=== PATIENT | female | born 1930 | race Hispanic/Latino ===

== ENCOUNTER 2018-04-01 10:01 | Emergency (ER) | payer OTHER ==
[2018-04-01] MEDS ORDERED: HYDROCODONE/APAP 5/325 MG TAB ONE (12:49)
--- NOTE | 2018-04-01 13:00 | RAD REPORT ---
EXAM DESCRIPTION: RAD - Foot Left 3 View - 04/01/2018 12:54 pm CLINICAL HISTORY: Pain;Smash injury COMPARISON: No comparisons FINDINGS: Cortical irregularity is seen at the base of the distal phalanx dorsal aspect left great t oe, compatible with a fracture. Mildly adjacent soft tissue swelling is present. Prominent calcaneal spurs are present.
[2018-04-01] MEDS ORDERED: CEPHALEXIN 250 MG CAP ONE (13:23)
--- NOTE | 2018-04-01 13:28 | ER ---
Nurse's Notes [facility] Name: Mirela Carranza Age: 87 yrs Sex: Female : 1930 Arrival Date: 04/01/2018 Time: 10:02 Bed 17 Private MD: Diagnosis: Contusion of left great toe with damage to nail;Nondisplaced fracture of distal phalanx of left great toe Presentation: 04/01 10:33 Presenting complaint: Patient states: Dropped something on toe on Sat and now has ph swelling and drainage from area, hx of NIDDM, denies fever, also denies N/V/D, L great toe noted to be swollen w/ discoloration to top of toe near toenail, bruise also noted to top of foot. Transition of care: patient was not received from another setting of care. Onset of symptoms was April 01, 2018. Risk Assessment: Do you want to hurt yourself or someone else? Patient reports no desire to harm self or others. Care prior to arrival: None. 10:33 Method Of Arrival: Wheelchair ph 10:33 Acuity: NESTOR 3 ph 11:50 Initial Sepsis Screen: Does the patient meet any 2 criteria? No. Patient's initial em sepsis screen is negative. Does the patient have a suspected source of infection? Yes: Skin breakdown/wound. Historical: - Allergies: 10:36 Morphine; ph - PMHx: 10:36 Diabetes - NIDDM; Hyperlipidemia; Hypertension; nerve pain; ph - PSHx: 10:36 back sx; Cholecystectomy; ph - Immunization history:: Adult Immunizations not up to date. - Social history:: Smoking status: Patient/guardian denies using tobacco. - Ebola Screening: : Patient negative for fever greater than or equal to 101.5 degrees Fahrenheit, and additional compatible Ebola Virus Disease symptoms Patient denies exposure to infectious person Patient denies travel to an Ebola-affected area in the 21 days before illness onset No symptoms or risks identified at this time. Screenin:36 Abuse screen: Denies threats or abuse. Nutritional screening: No deficits noted. em Tuberculosis screening: No symptoms or risk factors identified. Fall Risk None identified. Assessment: 11:40 General: Appears in no apparent distress. comfortable, Behavior is calm, cooperative, em Denies fever, reports a piece of wood fell on foot on Thursday. Pain: Complains of pain in left first toe Pain currently is 8 out of 10 on a pain scale. Neuro: Level of Consciousness is awake, alert, obeys commands, Oriented to person, place, time, situation. Cardiovascular: Capillary refill < 3 seconds Patient's skin is warm and dry. Respiratory: Airway is patent Respiratory effort is even, unlabored, Respiratory pattern is regular, symmetrical. GI: Abdomen is flat. Derm: Bruising that is dark purple, on left first toe. Musculoskeletal: Circulation, motion, and sensation intact. Range of motion: intact in all extremities, Swelling absent. 11:55 Reassessment: I agree with previous assessment. hb 12:40 Reassessment: Patient appears in no apparent distress at this time. Patient and/or em family updated on plan of care and expected duration. Pain level reassessed. Patient is alert, oriented x 3, equal unlabored respirations, skin warm/dry/pink. pending x-ray results, given a warm blanket. 13:45 Reassessment: Patient appears in no apparent distress at this time. Patient and/or em family updated on plan of care and expected duration. Pain level reassessed. Patient is alert, oriented x 3, equal unlabored respirations, skin warm/dry/pink. Vital Signs: 10:36 BP 114 / 48; Pulse 72; Resp 18; Temp 97.1; Pulse Ox 97% on R/A; Weight 67.13 kg; Height ph 5 ft. 1 in. (154.94 cm); 11:45 BP 116 / 58; Pulse 59; Resp 16; Pulse Ox 99% on R/A; em 13:00 BP 108 / 64; Pulse 64; Resp 18; Pulse Ox 99% on R/A; Pain 8/10; em 10:36 Body Mass Index 27.96 (67.13 kg, 154.94 cm) ph ED Course: 10:02 Patient arrived in ED. mr 10:34 Triage completed. ph 10:37 Arm band placed on. ph 11:35 Bucky Kaplan LVN is Primary Nurse. em 11:35 Patient has correct armband on for positive identification. Bed in low position. Call em light in reach. 11:36 [facility] Howard [facility]C [facility] snw 11:36 Vu Reyes MD is Attending Physician. snw 12:54 Foot Left 3 View XRAY In Process Unspecified. EDMS 13:20 Ortho shoe applied to left foot. em 13:26 Fei Gabriel MD is Referral Physician. snw 13:51 No provider procedures requiring assistance completed. Patient did not have IV access em during this emergency room visit. Administered Medications: 12:42 Drug: [place] 5 mg-325 mg 1 tabs Route: PO; em 13:20 Follow up: Response: No adverse reaction; Pain is decreased em 13:20 Drug: KeFLEX 500 mg Route: PO; em 13:57 Follow up: Response: No adverse reaction em Outcome: 13:26 Discharge ordered by MD. snw 13:55 Discharged to home ambulatory, with family. em 13:55 Condition: good 13:55 Discharge instructions given to patient, family, Instructed on discharge instructions, follow up and referral plans. medication usage, Demonstrated understanding of instructions, follow-up care, medications, Prescriptions given X 1. 13:57 Patient left the ED. em Signatures: Dispatcher [employer] EDFL Mehreen Howard, MECHANICAL DRAFTER-C MECHANICAL DRAFTER-Csnw Francisco Cami Kaplan, Bucky, NETWORKS COMPUTER CONSULTANT NETWORKS COMPUTER CONSULTANT em Stephany Hayes, DEIDRA RN Kennedi Estrella, RN RN Corrections: (The following items were deleted from the chart) 11:53 11:40 General: Appears in no apparent distress. comfortable, Behavior is calm, em cooperative, Denies fever, em 11:53 11:40 General: Appears in no apparent distress. comfortable, Behavior is calm, em cooperative, Denies fever, reports a piece of wood fell on foot 2 days ago. em
--- NOTE | 2018-04-01 13:28 | EDPHYS ---
Physician Documentation [facility] Name: Mirela Carranza Age: 87 yrs Sex: Female : 1930 Arrival Date: 04/01/2018 Time: 10:02 Bed 17 Private MD: ED Physician Vu Reyes HPI: 04/01 12:07 This 87 yrs old Female presents to ER via Wheelchair with complaints of Foot snw Injury. 12:07 The patient presents with a contusion, pain, that is acute, swelling, tenderness. The snw complaints affect the dorsum of left foot. Context: The problem was sustained at a store, resulted from a crush injury, from a heavy object, the patient can fully bear weight, the patient is able to ambulate. Onset: The symptoms/episode began/occurred suddenly, 4 day(s) ago, and became persistent. Associated signs and symptoms: The patient has no apparent associated signs or symptoms. Treatment prior to arrival includes: elevation, soaks, popped a blister to anterior great toe. Severity of symptoms: At their worst the symptoms were moderate. The patient has not experienced similar symptoms in the past. The patient has not recently seen a physician. Historical: - Allergies: 10:36 Morphine; ph - PMHx: 10:36 Diabetes - NIDDM; Hyperlipidemia; Hypertension; nerve pain; ph - PSHx: 10:36 back sx; Cholecystectomy; ph - Immunization history:: Adult Immunizations not up to date. - Social history:: Smoking status: Patient/guardian denies using tobacco. - Ebola Screening: : Patient negative for fever greater than or equal to 101.5 degrees Fahrenheit, and additional compatible Ebola Virus Disease symptoms Patient denies exposure to infectious person Patient denies travel to an Ebola-affected area in the 21 days before illness onset No symptoms or risks identified at this time. ROS: 12:04 Constitutional: Negative for fever, chills, and weight loss, Eyes: Negative for injury, snw pain, redness, and discharge, ENT: Negative for injury, pain, and discharge, Neck: Negative for injury, pain, and swelling, Cardiovascular: Negative for chest pain, palpitations, and edema, Respiratory: Negative for shortness of breath, cough, wheezing, and pleuritic chest pain, Abdomen/GI: Negative for abdominal pain, nausea, vomiting, diarrhea, and constipation, Back: Negative for injury and pain, : Negative for injury, bleeding, discharge, and swelling, Skin: Negative for injury, rash, and discoloration, Neuro: Negative for headache, weakness, numbness, tingling, and seizure. 12:04 MS/extremity: Positive for injury or acute deformity, contusion, ecchymosis, swelling, tenderness, of the left foot. Exam: 12:04 Constitutional: This is a well developed, well nourished patient who is awake, alert, snw and in no acute distress. Head/Face: Normocephalic, atraumatic. Eyes: Pupils equal round and reactive to light, extra-ocular motions intact. Lids and lashes normal. Conjunctiva and sclera are non-icteric and not injected. Cornea within normal limits. Periorbital areas with no swelling, redness, or edema. ENT: Nares patent. No nasal discharge, no septal abnormalities noted. Tympanic membranes are normal and external auditory canals are clear. Oropharynx with no redness, swelling, or masses, exudates, or evidence of obstruction, uvula midline. Mucous membranes moist. Neck: Trachea midline, no thyromegaly or masses palpated, and no cervical lymphadenopathy. Supple, full range of motion without nuchal rigidity, or vertebral point tenderness. No Meningismus. Chest/axilla: Normal chest wall appearance and motion. Nontender with no deformity. No lesions are appreciated. Cardiovascular: Regular rate and rhythm with a normal S1 and S2. No gallops, murmurs, or rubs. Normal PMI, no JVD. No pulse deficits. Respiratory: Lungs have equal breath sounds bilaterally, clear to auscultation and percussion. No rales, rhonchi or wheezes noted. No increased work of breathing, no retractions or nasal flaring. Abdomen/GI: Soft, non-tender, with normal bowel sounds. No distension or tympany. No guarding or rebound. No evidence of tenderness throughout. Back: No spinal tenderness. No costovertebral tenderness. Full range of motion. Skin: Warm, dry with normal turgor. Normal color with no rashes, no lesions, and no evidence of cellulitis. Neuro: Awake and alert, GCS 15, oriented to person, place, time, and situation. Cranial nerves II-XII grossly intact. Motor strength 5/5 in all extremities. Sensory grossly intact. Cerebellar exam normal. Normal gait. Psych: Awake, alert, with orientation to person, place and time. Behavior, mood, and affect are within normal limits. 12:04 Musculoskeletal/extremity: Extremities: grossly normal except: noted in the left foot: contusion, decreased ROM, ecchymosis, pain, ROM: no acute changes, Circulation is intact in all extremities. tenderness Joints: All joints appear normal with full range of motion. Vital Signs: 10:36 BP 114 / 48; Pulse 72; Resp 18; Temp 97.1; Pulse Ox 97% on R/A; Weight 67.13 kg; Height ph 5 ft. 1 in. (154.94 cm); 11:45 BP 116 / 58; Pulse 59; Resp 16; Pulse Ox 99% on R/A; em 13:00 BP 108 / 64; Pulse 64; Resp 18; Pulse Ox 99% on R/A; Pain 8/10; em 10:36 Body Mass Index 27.96 (67.13 kg, 154.94 cm) ph MDM: 11:48 Patient medically screened. snw 13:29 Data reviewed: vital signs, nurses notes. Data interpreted: Pulse oximetry: on room air snw is 97 %. Interpretation: normal. Counseling: I had a detailed discussion with the patient and/or guardian regarding: the historical points, exam findings, and any diagnostic results supporting the discharge/admit diagnosis, radiology results, the need for outpatient follow up, to return to the emergency department if symptoms worsen or persist or if there are any questions or concerns that arise at home. Special discussion: Based on the history and exam findings, there is no indication for further emergent testing or inpatient evaluation. I discussed with the patient/guardian the need to see the orthopedic surgeon for further evaluation of the symptoms. I discussed with the patient/guardian the need to see the primary care provider for further evaluation of the symptoms. 04/01 11:37 Order name: Foot Left 3 View XRAY; Complete Time: 13:05 snw 04/01 13:06 Order name: Post-op shoe; Complete Time: 13:20 snw Administered Medications: 12:42 Drug: [place] 5 mg-325 mg 1 tabs Route: PO; em 13:20 Follow up: Response: No adverse reaction; Pain is decreased em 13:20 Drug: KeFLEX 500 mg Route: PO; em 13:57 Follow up: Response: No adverse reaction em Disposition: 04/01/18 13:26 Discharged to Home. Impression: Contusion of left great toe with damage to nail, Nondisplaced fracture of distal phalanx of left great toe. - Condition is Stable. - Discharge Instructions: Cast or Splint Care, Adult, Toe Fracture. - Prescriptions for Keflex 500 mg Oral Capsule - take 1 capsule by ORAL route every 8 hours for 10 days; 30 capsule. - Medication Reconciliation Form, Thank You Letter, Antibiotic Education, Prescription Opioid Use form. - Follow up: Fei Gabriel MD; When: 2 - 3 days; Reason: Recheck today's complaints, Continuance of care. Follow up: Emergency Department; When: As needed; Reason: Worsening of condition. Addendum: 04/03/2018 15:28 Co-signature as Attending Physician, Vu Reyes MD. m a2 Signatures: Dispatcher [employer] EDMehreen Esparza, CARISSA-C SENIOR ORACLE DATABASE ADMINISTRATOR-Julietaw Bucky Kaplan, INBOUND SALES REPRESENTATIVE INBOUND SALES REPRESENTATIVE em Stephany Hayes RN RN Vu Reyes MD MD ma2 Corrections: (The following items were deleted from the chart) 04/01 13:57 13:26 04/01/2018 13:26 Discharged to Home. Impression: Contusion of left great toe with em damage to nail; Nondisplaced fracture of distal phalanx of left great toe. Condition is Stable. Forms are Medication Reconciliation Form, Thank You Letter, Antibiotic Education, Prescription Opioid Use. Follow up: Fei Gabriel; When: 2 - 3 days; Reason: Recheck today's complaints, Continuance of care. Follow up: Emergency Department; When: As needed; Reason: Worsening of condition. snw
== END 2018-04-01 13:57 | disposition home or self-care (01) ==
LOC: ER 10:01
DX: S90.212A Contusion of left great toe with damage to nail, initial encounter (principal); S92.425A Nondisplaced fracture of distal phalanx of left great toe, initial encounter for closed fracture; W22.8XXA Striking against or struck by other objects, initial encounter
CPT/HCPCS: 99284